=== PATIENT | female | born 1980 | race Caucasian/White ===

== ENCOUNTER 2019-12-13 08:09 | Outpatient (REF) | payer MEDICAID, OTHER, SELFPAY | END 2019-12-13 08:10 | disposition home or self-care (01) | LOC: HO.SCI 08:09 | DX: Z13.89 Encounter for screening for other disorder (principal) ==

== ENCOUNTER 2019-12-22 13:19 | Outpatient (REF) | payer MEDICAID, OTHER, SELFPAY ==
--- NOTE | 2019-12-22 | US_ITS ---
EXAMINATION: US SCROTUM CLINICAL INFORMATION: 39-year-old transgender female with right testicular swelling and pain. History of hormone therapy. COMPARISON: None TECHNIQUE: A sonogram of the scrotum was performed assessing plaza-scale appearance and color Doppler flow. Spectral Doppler analysis of the arterial and venous flow were performed in the testes bilaterally. FINDINGS: RIGHT: Right testicle measures 3.5 x 1.7 x 2.6 cm, volume 7.8 mL. No focal testicular parenchymal lesions are visualized. Spectral Doppler analysis of the arterial and venous flow is symmetric in the right testis. Right epididymal head is normal in size. A 0.3 cm cyst is located in the head of the right epididymis. No right hydrocele or varicocele is seen. Right epididymal Doppler flow is average. LEFT: Left testicle measures 3.6 x 1.4 x 2.0 cm, volume 5.3 mL. No focal testicular parenchymal lesions are visualized. Spectral Doppler analysis of the arterial and venous flow is symmetric in the left testis. Left epididymal head is normal in size. No left hydrocele or varicocele is seen. Left epididymal Doppler flow is average. Two scrotal pearls are present within the left hemiscrotum. IMPRESSION: No evidence of testicular torsion.
== END 2019-12-22 13:20 | disposition home or self-care (01) ==
LOC: HO.US 13:19
PROVIDERS: Visit Provider Nurse Practitioner Primary Care
DX: N94.89 Other specified conditions associated with female genital organs and menstrual cycle (principal)
CPT/HCPCS: 76870

== ENCOUNTER 2019-12-23 12:20 | Outpatient (REF) | payer MEDICAID, OTHER, SELFPAY ==
[2019-12-23 18:07] LABS: CT PCR NOT DETECTED (Not Detect.); NG PCR NOT DETECTED (Not Detect.)
[2019-12-24 04:26] LABS: Syphilis Screen Reactive (Nonreactive)
[2020-01-05 12:45] LABS: RPR Quantitative Reactive 1:1 (Nonreactive)
[2020-01-05 12:48] LABS: T.Pallidum Particle Agg Test Reactive (Nonreactive)
== END 2019-12-23 12:21 | disposition home or self-care (01) ==
LOC: HO.LAB 12:20
PROVIDERS: Visit Provider Internal Medicine Infectious Disease
DX: Z00.00 Encounter for general adult medical examination without abnormal findings (principal); Z11.3 Encounter for screening for infections with a predominantly sexual mode of transmission
CPT/HCPCS: 86481; 86592; 86780; 87491; 87591

== ENCOUNTER 2020-12-05 14:39 | Outpatient (REF) | payer MEDICAID, OTHER, SELFPAY ==
--- NOTE | ~2020-12-05 | XR_ITS ---
EXAMINATION: XR CHEST CLINICAL INFORMATION: Positive TB test COMPARISON: Previous chest x-ray December 2019 TECHNIQUE: 2 views of the chest were obtained. FINDINGS: The cardiac and mediastinal contours are normal. There is a 7 mm nodule in the right upper lobe that is stable and probably represents a calcified granuloma. The lungs are otherwise clear. There is no pleural effusion or pneumothorax. Bony structures are unremarkable. XR/XR chest 2V IMPRESSION: No evidence for acute disease in the chest. Stable 7 mm right upper lobe pulmonary nodule from December 2019 probably representing a calcified granuloma.
[2020-12-06 08:09] LABS: Syphilis Screen Reactive (Nonreactive)
[2020-12-14 08:19] LABS: RPR Quantitative Reactive 1:1 (Nonreactive); T.Pallidum Particle Agg Test Reactive (Nonreactive)
== END 2020-12-05 14:40 | disposition home or self-care (01) ==
LOC: HO.XRAY 14:39
PROVIDERS: PCP Nurse Practitioner Primary Care; Visit Provider Internal Medicine Infectious Disease
DX: R76.11 Nonspecific reaction to tuberculin skin test without active tuberculosis (principal)
CPT/HCPCS: 36415; 71046; 86592; 86780